=== PATIENT | male | born 1985 | race Caucasian/White ===

== ENCOUNTER 2017-08-16 13:45 | Emergency (ER) | payer SELFPAY ==
[2017-08-16] VITALS (7 sets, daily range): BP systolic 135–153; BP diastolic 93–106; PULSE 59–77; RESP 13–18; TEMP 36.8; O2SAT 99–100; BMI 23.4
--- NOTE | 2017-08-16 14:00 | ED.WEAKNESS ---
HPI - Weakness General Chief complaint: Weakness Stated complaint: NAUSEA/WEAKNESS/SKIN LIESION Time Seen by Provider: 08/16/17 14:00 Source: patient Mode of arrival: ambulatory Limitations: no limitations History of Present Illness HPI Narrative: Patient presents to the emergency department today with a chief complaint of 1 week of nausea, vomiting, generalized abdominal pain and weakness with poor appetite for the past week. He admits to subjective fever and chills and has felt generally poor over that time frame. He is shortly drinks 12-16 beers nightly but stopped 3 days ago because he felt so badly. He has never had withdrawal symptoms in the past. He denies any tremors nor hallucinations. He has no headache. He denies recent antibiotics or exposure to bad food MD Complaint: generalized weakness Onset (ago): day(s) Duration: constant Location: generalized Migration: none Associated symptoms: nausea/vomiting Related Data Previous Rx's Medication Instructions Recorded doxycycline hyclate 100 mg PO BID #14 tab 08/16/17 ondansetron [Zofran ODT] 4 mg PO Q6H PRN #14 tab 08/16/17 Allergies Allergy/AdvReac Type Severity Reaction Status Date / Time ibuprofen Allergy Severe Anaphylaxis Verified 08/16/17 13:56 Review of Systems Review of Systems All systems reviewed & are unremarkable except as noted in HPI and below Constitutional Reports anorexia, Denies chills, Reports fatigue, Denies fever(s), Denies lethargy, Reports poor appetite, Reports weakness and Reports weight loss Eyes Denies change in vision, Denies eye discharge, Denies irritation and Denies loss of vision Cardiovascular Denies chest pain, Denies irregular heart rhythm, Denies lightheadedness, Denies palpitations and Denies orthopnea Gastrointestinal Gastrointestinal: Reports abdominal pain, Reports change in bowel habits, Denies diarrhea, Reports nausea and Reports vomiting Genitourinary Denies hematuria, Denies flank pain, Denies urinary incontinence and Denies urinary urgency Musculoskeletal Denies back pain, Denies muscle weakness, Denies numbness and Denies tingling Integumentary/Breasts Denies erythema and Denies wounds Comments: Complains of worsening facial acne with spread to the chest Neurologic Denies loss of vision, Denies numbness, Denies tingling and Reports weakness Endocrine Reports fatigue and Denies palpitations [facility] Social History Smoking Status: Never smoker Exam Narrative Exam Narrative: 32-year-old male appears a bit disheveled unkempt. He appears unwell Const General: cooperative, well developed, in distress, disheveled and ill appearing Nutritional Appearance: well nourished Orientation: alert, awake, oriented x3 and not confused [facility] Head: normocephalic and atraumatic Ears: external ears normal and TM's normal bilaterally Nose: external nose normal and No nasal discharge Face and sinus: sinuses nontender, face symmetric, no sinus tenderness and No dry mucous membranes Mouth: oral mucosae normal and moist mucous membranes Teeth and gingiva: dentition normal Throat: tonsils normal and uvula midline Eyes General: appearance normal, both eyes and all related structures Eyelids: eyelids normal Conjunctivae: conjunctivae normal Sclera: sclerae normal Pupils: PERRL EOM: EOM intact bilaterally Neck Neck: normal visual inspection, trachea midline, No lymphadenopathy, No midline deformity and No JVD Lymphatic: No lymphedema Chest Chest: normal inspection of the chest Resp Effort & Inspection: normal respiratory effort, able to speak in complete sentences, no respiratory distress and no use of accessory muscles Auscultation: clear to auscultation bilaterally, no rales, no rhonchi and no wheezes GI Inspection: non-distended Palpation: soft, no hepatosplenomegaly, No guarding, No pulsatile mass and No tender Auscultation: normal bowel sounds Back/Spine/Pelvis Back: No CVA tenderness Cervical Spine: cervical ROM normal and No pain with cervical ROM Thoracic/Lumbar Spine: thoracic and lumbar spine normal to inspection Skin General: erythema Other: Multiple pustules and erythema over majority of the face MDM - Weakness Lab Data Attestation: I reviewed the patient's lab results. Result diagrams: 08/16/17 15:15 08/16/17 15:15 Lab Results 08/16/17 08/16/17 08/16/17 Range/Units 15:15 15:15 15:15 WBC 9.7 (4.5-11.0) X10^3/uL RBC 5.04 (4.5-5.9) X10^6/uL Hgb 16.5 (13.5-17.5) g/dL Hct 46.7 (41-53) % MCV 92.6 (80-100) fL MCH 32.8 (26-34) PG MCHC 35.4 (30-36) % RDW 13.0 (11.6-14.8) % Plt Count 163 (150-400) X10^3/uL Neut % (Auto) 86.6 H (50-75) % Lymph % (Auto) 6.7 L (25-40) % Ector % (Auto) 5.3 (3-14) % Eos % (Auto) 1.0 L (2-4) % Baso % (Auto) 0.4 (0-2) % Neut # (Auto) 8400 H (2351-7679) /uL Sodium 138 (137-145) mmol/L Potassium 3.5 (3.4-5.1) mmol/L Chloride 95.0 L (98-107) mmol/L Carbon Dioxide 30.0 (22-32) mmol/L BUN 8.0 L (9-20) mg/dL Creatinine 0.80 (0.66-1.25) mg/dL Estimated GFR > 60.0 (>60) mL/min BUN/Creatinine Ratio 10.0 (6-22) Glucose 107 H (70-100) mg/dL Lactate (0.7-2.1) mmol/L Calcium 10.1 (8.4-10.2) mg/dL Total Bilirubin 2.9 H (0.2-1.3) mg/dL AST 69 H (17-59) IU/L ALT 71 (21-72) IU/L Alkaline Phosphatase 81 (38-126) U/L Total Protein 8.7 H (6.3-8.2) g/dL Albumin 4.7 (3.5-5.0) g/dL Globulin 4.0 (1.7-4.1) g/dL Albumin/Globulin Ratio 1.2 (1.0-2.8) Lipase 161 (23-300) U/L Procalcitonin 6.49 H (<0.5) ng/mL 08/16/17 Range/Units 15:15 WBC (4.5-11.0) X10^3/uL RBC (4.5-5.9) X10^6/uL Hgb (13.5-17.5) g/dL Hct (41-53) % MCV (80-100) fL MCH (26-34) PG MCHC (30-36) % RDW (11.6-14.8) % Plt Count (150-400) X10^3/uL Neut % (Auto) (50-75) % Lymph % (Auto) (25-40) % Ector % (Auto) (3-14) % Eos % (Auto) (2-4) % Baso % (Auto) (0-2) % Neut # (Auto) (7559-0027) /uL Sodium (137-145) mmol/L Potassium (3.4-5.1) mmol/L Chloride (98-107) mmol/L Carbon Dioxide (22-32) mmol/L BUN (9-20) mg/dL Creatinine (0.66-1.25) mg/dL Estimated GFR (>60) mL/min BUN/Creatinine Ratio (6-22) Glucose (70-100) mg/dL Lactate 1.0 (0.7-2.1) mmol/L Calcium (8.4-10.2) mg/dL Total Bilirubin (0.2-1.3) mg/dL AST (17-59) IU/L ALT (21-72) IU/L Alkaline Phosphatase (38-126) U/L Total Protein (6.3-8.2) g/dL Albumin (3.5-5.0) g/dL Globulin (1.7-4.1) g/dL Albumin/Globulin Ratio (1.0-2.8) Lipase (23-300) U/L Procalcitonin (<0.5) ng/mL Imaging Data Chest x-ray: Attestation: I personally reviewed and interpreted this imaging study as follows: Radiologist's impression: PROCEDURE: XR ACUTE ABDOMEN SERIES INDICATIONS: Abdominal pain TECHNIQUE: One view chest and two views of the abdomen were acquired. COMPARISON: None. FINDINGS: Surgical changes and devices: None. Chest: Lungs are clear. Heart size is normal. No pleural effusions. No pneumoperitoneum. Abdomen: Bowel gas pattern is normal. No suspicious calcifications. Visualized solid organ contours appear normal. Bones: No suspicious bony lesions. IMPRESSION: No radiographic evidence of acute abdominal or cardiopulmonary pathology. Dictated by: Adrian Rodriguez M.D. on 08/16/2017 at 15:28 Approved by: Adrian Rodriguez M.D. on 08/16/2017 at 15:29 Abdominal x-ray: Radiologist's impression: PROCEDURE: XR ACUTE ABDOMEN SERIES INDICATIONS: Abdominal pain TECHNIQUE: One view chest and two views of the abdomen were acquired. COMPARISON: None. FINDINGS: Surgical changes and devices: None. Chest: Lungs are clear. Heart size is normal. No pleural effusions. No pneumoperitoneum. Abdomen: Bowel gas pattern is normal. No suspicious calcifications. Visualized solid organ contours appear normal. Bones: No suspicious bony lesions. IMPRESSION: No radiographic evidence of acute abdominal or cardiopulmonary pathology. Course Orders Ordered: ED Orders 08/16/17 14:41 XR acute abdomen series Stat 08/16/17 15:15 Complete Blood Count AUTO DIFF Stat Comprehensive Metabolic Panel Stat Lactate (Lactic Acid) Stat Lipase Stat Procalcitonin Stat 08/16/17 16:10 Blood Culture Stat Sodium Chloride (Normal Saline 0.9%) 1,000 mls @ 1,000 mls/hr IV BOLUS ONE Stop: 08/16/17 19:38 Last Admin: 08/16/17 18:40 Dose: 1,000 mls/hr Ondansetron HCl (Zofran) 4 mg IV Q4HR PRN PRN Reason: Nausea And Vomiting Last Admin: 08/16/17 15:21 Dose: 4 mg Discontinued Medications Doxycycline Hyclate (Vibramycin) 100 mg PO NOW ONE Stop: 08/16/17 16:57 Last Admin: 08/16/17 17:03 Dose: 100 mg Sodium Chloride (Normal Saline 0.9%) 1,000 mls @ 1,000 mls/hr IV BOLUS ONE Stop: 08/16/17 17:55 Last Infusion: 08/16/17 18:40 Dose: 0 mls/hr Admin: 08/16/17 17:03 Dose: 1,000 mls/hr Ondansetron HCl (Zofran Odt Prepack) 1 bottle MISC SEEINSTR ONE Stop: 08/16/17 18:36 Last Admin: 08/16/17 18:40 Dose: 1 bottle Last Vital Signs Temp 98.2 F 08/16/17 13:51 Pulse 69 08/16/17 18:30 Resp 13 08/16/17 18:30 BP 139/93 H 08/16/17 18:30 Pulse Ox 100 08/16/17 18:30 Discharge Plan Departure Patient Disposition: Home, Self-Care Clinical Impression: Vomiting, Dehydration, Cellulitis of face Instructions: DI for Cellulitis -- Adult Activity Restrictions/Additional Instructions: 1. Drink plenty of fluids with frequent small sips. 2. For the next 24 hours a clear liquid diet is advised. After that please employ a brat diet which would include bananas, rice, apples, toast. 3. Please take medications as directed. 4. Please follow-up with your doctor in the next 1-2 days. Call the office for an appointment. 5. Please return to the emergency Department for any worsening or persistent symptoms, such as increasing pain or fever. There is no evidence of an emergent or life threatening illness at this time, but follow up with your doctor in 1-2 days is recommended nonetheless to continue to rule out serious underlying causes of your symptoms. Please call the office for an appointment. Please return to the Emergency Department for any worsening or persistent symptoms. Please take medications as directed. Prescriptions: New doxycycline hyclate 100 mg tablet 100 mg PO BID Qty: 14 RF: 0 ondansetron [Zofran ODT] 4 mg tablet,disintegrating 4 mg PO Q6H PRN (Reason: nausea and vomiting) Qty: 14 RF: 0
--- NOTE | 2017-08-16 14:41 | DI.RAD.S_ITS ---
PROCEDURE: XR ACUTE ABDOMEN SERIES INDICATIONS: Abdominal pain TECHNIQUE: One view chest and two views of the abdomen were acquired. COMPARISON: None. FINDINGS: Surgical changes and devices: None. Chest: Lungs are clear. Heart size is normal. No pleural effusions. No pneumoperitoneum. Abdomen: Bowel gas pattern is normal. No suspicious calcifications. Visualized solid organ contours appear normal. Bones: No suspicious bony lesions. IMPRESSION: No radiographic evidence of acute abdominal or cardiopulmonary pathology. Dictated by: Adrian Rodriguez M.D. on 08/16/2017 at 15:28 Approved by: Adrian Rodriguez M.D. on 08/16/2017 at 15:29
[2017-08-16] MEDS: ONDANSETRON 4 MG/2 ML INJ IV (15:21)
[2017-08-16 15:28] LABS: Add Manual Diff / Slide Review NO; Basophils Percent Auto 0.4 % (0-2); Hematocrit 46.7 % (41-53); Hemoglobin 16.5 g/dL (13.5-17.5); Lymphocytes Percent Auto 6.7 % (25-40); Mean Corpuscular HGB Conc 35.4 % (30-36); Mean Corpuscular Hemoglobin 32.8 PG (26-34); Mean Corpuscular Volume 92.6 fL (80-100); Monocytes Percent Auto 5.3 % (3-14); Neutrophils Absolute Auto 8400 /uL (3000-5900); Neutrophils Percent Auto 86.6 % (50-75); Platelet Count 163 X10^3/uL (150-400); Red Blood Cell Count 5.04 X10^6/uL (4.5-5.9); White Blood Cell Count 9.7 X10^3/uL (4.5-11.0)
[2017-08-16 15:53] LABS: Alanine Aminotransferase 71 IU/L (21-72); Albumin 4.7 g/dL (3.5-5.0); Albumin Globulin Ratio 1.2 (1.0-2.8); Alkaline Phosphatase 81 U/L (38-126); Aspartate Aminotransferase 69 IU/L (17-59); Bilirubin Total 2.9 mg/dL (0.2-1.3); Calcium 10.1 mg/dL (8.4-10.2); Estimated Glomerular Filt Rate > 60.0 mL/min (>60); Glucose 107 mg/dL (70-100); HEMOLYSIS < 15 (0-50); Lipase 161 U/L (23-300); Potassium 3.5 mmol/L (3.4-5.1); Sodium 138 mmol/L (137-145); Total Protein 8.7 g/dL (6.3-8.2)
[2017-08-16 16:09] LABS: Procalcitonin 6.49 ng/mL (<0.5)
[2017-08-16] MEDS: SODIUM CHLORIDE 0.9% 1,000 ML 1000 ML IV ×2 (17:03→18:40)
[2017-08-16] MEDS: DOXYCYCLINE HYCLATE 100 MG TABLET PO (17:03)
[2017-08-16] MEDS: ONDANSETRON 4 MG ODT PREPACK 1 BOTTLE MISC (18:40)
== END 2017-08-16 20:15 | disposition home or self-care (01) ==
PROVIDERS: Emergency Provider Emergency Medicine
DX: R11.10 Vomiting, unspecified (principal); E86.0 Dehydration; L03.211 Cellulitis of face
CPT/HCPCS: 36415; 36591; 74022; 80053; 83605; 83690; 84145; 85025; 87040; 96361; 96374; 99284; J2405